=== PATIENT | female | born 1985 | race Two or more races ===

== ENCOUNTER → 2019-06-11 | Outpatient (CLI) | payer OTHER ==
--- NOTE | 2019-06-11 20:01 | EKG REPORT ---
SEVERITY:- NORMAL ECG - SINUS RHYTHM : Confirmed by: Jocelin Rivas MD 11-Jun-2019 20:01:13
== END ==
LOC: OD 11:06
PROVIDERS: ATTEND Nurse Practitioner Family
DX: R55 Syncope and collapse (principal)
CPT/HCPCS: 93005; 93010

== ENCOUNTER → 2019-09-13 | Outpatient (CLI) | payer OTHER | LOC: LAB 11:42 | PROVIDERS: ATTEND Nurse Practitioner Family | DX: R30.0 Dysuria (principal) | CPT/HCPCS: 87086; 87088; 87186 ==